=== PATIENT | male | born 1960 | race Asian ===

== ENCOUNTER 2017-06-27 11:41 | Day surgery (SDC) | payer OTHER ==
[~2017-06-27] VITALS: Ht 167.6 cm; Wt 67.3 kg
[2017-06-27] VITALS (15 sets, daily range): BP systolic 128–190; BP diastolic 81–106; PULSE 52–64; RESP 10–28; Ht 167.6 cm; Wt 67.3 kg
[2017-06-27] MEDS ORDERED: BUPIVACAINE 0.25% (MPF) 30 ML INJ ONE (13:02)
[2017-06-27] MEDS ORDERED: POLYMYXIN/BACITRACIN 1L IRRIG ONE (13:02)
[2017-06-27] MEDS ORDERED: BACITRACIN/POLYMYXIN 28.35 GM OINT TOP ONE (13:02)
[2017-06-27] MEDS ORDERED: HYDR10TA36 PO (13:12)
[2017-06-27] MEDS ORDERED: PROPOFOL 20 ML ONE ×2 (13:25)
[2017-06-27] MEDS ORDERED: LIDOCAINE 2% (SDV) 5 ML INJ ONE ×2 (13:25)
--- NOTE | 2017-06-27 13:25 | HPN ---
Date/Time of Note Date/Time of Note DATE: 06/27/17 TIME: 13:24 Interval H&P Admission Note Pt. seen H&P reviewed: No system changes ULI WINTERS MD Jun 27, 2017 13:25
[2017-06-27] MEDS ORDERED: MEPERIDINE 100 MG INJ ONE (13:26)
[2017-06-27] MEDS ORDERED: CEFAZOLIN 1 GM INJ ONE ×2 (13:27→13:34)
--- NOTE | 2017-06-27 14:06 | OPR ---
Date/Time of Note Date/Time of Note DATE: 06/27/17 TIME: 14:04 Operative Report Preoperative Diagnosis left knee mass Postoperative Diagnosis same Operation/Procedure Performed excision of mass left knee Surgeon: ULI WINTERS MD Anesthesia Type: general Estimated Blood Loss: 10 - 50 ml's Transfusion Required: no Specimens left knee prepatellar mass most likely gout Complications: no ULI WINTERS MD Jun 27, 2017 14:06
[2017-06-27] MEDS ORDERED: FENTAnyl 50 MCG/ML VIAL IV PRN ×3 (14:30)
[2017-06-27] MEDS ORDERED: hydrALAzine 20 MG INJ IV PRN (14:30)
[2017-06-27] MEDS ORDERED: EPHEDrine SULFATE 50 MG/5 ML SYG IV PRN (14:30)
[2017-06-27] MEDS ORDERED: METOCLOPRAMIDE 10 MG INJ IV PRN (14:30)
[2017-06-27] MEDS ORDERED: OXYCODONE/ACETAMINOPHEN (5/325) TAB PO PRN ×2 (14:30)
[2017-06-27] MEDS ORDERED: MIDAZOLAM 1 MG/ML 2 ML INJ IV PRN (14:30)
[2017-06-27] MEDS ORDERED: MEPERIDINE 25 MG INJ IV PRN (14:30)
[2017-06-27] MEDS ORDERED: LABETALOL HCL 20MG INJ IV PRN (14:30)
[2017-06-27] MEDS ORDERED: DIPHENHYDRAMINE 50 MG INJ IV PRN (14:30)
[2017-06-27] MEDS ORDERED: ONDANSETRON 4 MG INJ IV PRN (14:30)
--- NOTE | 2017-06-28 10:12 | OPR ---
DATE OF OPERATION: 06/28/2017 PREOPERATIVE DIAGNOSIS: Large left knee mass. OPERATION PERFORMED: Excision of left knee large anterior mass, most consistent with gout. ESTIMATED BLOOD LOSS: 25 mL. COMPLICATIONS: None. OPERATIVE PROCEDURE: The patient was taken to the operating room and general anesthetic was given to the patient. tourniquet upon the bilateral left thigh. Exsanguinated with an Esmarch bandage. Tourniquet inflated to 300 mmHg. A 6 x 3 mm hard mass in the prepatellar bursa was identified. This was most consistent with gouty tophus. This was removed in its entirety down to the patella. The bursa was irrigated. There were no residual deposits left. Hemostasis was ascertained. Subcutaneous layer was closed with 0 Vicryl sutures and closed with bartolo. Compression bandage applied. Anesthetic reversed. The patient was taken to the recovery room in stable condition. Dictated By: Alexi Hogan MD /symone/preet /Document#: [id number]
== END 2017-06-27 16:10 | disposition home or self-care (01) ==
LOC: SDS 11:41
PROVIDERS: ATTEND Specialist
DX: M1A.0621 Idiopathic chronic gout, left knee, with tophus (tophi) (principal); I10 Essential (primary) hypertension; E78.5 Hyperlipidemia, unspecified
CPT/HCPCS: 11406; 88307; J0360; J0690; J2175; J2765; J3010; Z7512; Z7610

== ENCOUNTER 2017-12-13 13:05 | Day surgery (SDC) | END 2017-12-13 18:17 | disposition home or self-care (01) ==

== ENCOUNTER 2018-03-07 12:04 | Day surgery (SDC) | END 2018-03-07 16:10 | disposition home or self-care (01) ==

== ENCOUNTER 2018-03-29 14:31 | Day surgery (SDC) | END 2018-03-29 20:30 | disposition home or self-care (01) ==

== ENCOUNTER 2018-08-31 11:03 | Day surgery (SDC) | END 2018-08-31 15:31 | disposition home or self-care (01) ==